=== PATIENT | female | born 1990 | race American Indian/Alaskan Native ===

== ENCOUNTER 2019-09-06 16:39 | Emergency (ER) | payer SELFPAY ==
[2019-09-06 17:11] VITALS: BP 132/91
[2019-09-06 17:16] LABS: Basophils % (Auto) 0.7 % (0.0-1.8); Eosinophils # (Auto) 0.1 K/mm3 (0.0-0.4); Eosinophils % (Auto) 1.8 % (0.0-4.3); Hematocrit 31.7 % (30.3-42.9); Hemoglobin 10.3 gm/dl (10.1-14.3); Lymphocytes # (Auto) 1.8 K/mm3 (1.2-5.4); Lymphocytes % (Auto) 29.1 % (13.4-35.0); Mean Corpuscular HGB Conc 32 % (30-34); Mean Corpuscular Volume 73 fl (79-97); Monocytes # (Auto) 0.5 K/mm3 (0.0-0.8); Monocytes % (Auto) 7.9 % (0.0-7.3); Platelet Count 387 K/mm3 (140-440); Red Blood Count 4.37 M/mm3 (3.65-5.03); Red Cell Distribution Width 19.2 % (13.2-15.2)
[2019-09-06 17:29] LABS: BUN/Creatinine Ratio 11; Blood Urea Nitrogen 10 mg/dL (7-17); Hemolysis Index 4
[2019-09-06 18:44] LABS: Benzodiazepines Screen,Urine PRESUMPTIVE NEGATIVE; Methadone Screen,Urine PRESUMPTIVE NEGATIVE; Opiate Screen,Urine PRESUMPTIVE NEGATIVE
[2019-09-06 18:48] LABS: Bilirubin,Urine NEG (Negative); Blood,Urine NEG (Negative); Color,Urine Yellow (Yellow); Hyaline Casts,Urine 3 /LPF; Mucus,Urine FEW /HPF; Protein,Urine <15 mg/dL mg/dL (Negative); Urobilinogen,Urine < 2.0 mg/dL (<2.0)
[2019-09-06 18:55] LABS: Amphetamine Screen,Urine PRESUMPTIVE POSITIVE; Cannabinoid Screen,Urine PRESUMPTIVE POSITIVE; Cocaine Screen,Urine PRESUMPTIVE POSITIVE
--- NOTE | 2019-09-06 18:59 | Emergency Department Report ---
ED Psych HPI - General Chief Complaint: Medical Clearance Stated Complaint: BED BUGS Source: patient Mode of arrival: Ambulatory - History of Present Illness Initial Comments: Patient presents to the emergency room complaining that there is bedbugs in her eyes and on her skin and she has bleach her entire body. Patient reports that she was staying at a hotel and forearm the claim clerk that she had bedbugs. Denies any suicidal homicidal ideation. Patient follows up here to the emergency room. Complaint: other (Bizarre behavior) Associated Psychiatric Symptoms: visual hallucinations History of same: No Quality: constant Improves With: none Worsens With: none Context: recent drug abuse Associated Symptoms: denies: confusion, headache, shortness of breath, nausea, vomiting Treatments Prior to Arrival: none - Related Data Allergies Allergy/AdvReac Type Severity Reaction Status Date / Time No Known Allergies Allergy Unverified 09/06/19 17:11 ED Review of Systems ROS: Stated complaint: BED BUGS Other details as noted in HPI ED Past Medical Hx - Social History Smoking Status: Never Smoker Substance Use Type: None ED Physical Exam - General Limitations: No Limitations ED Course Vital Signs 09/06/19 17:07 Temperature 98.1 F Pulse Rate 125 H Respiratory 18 Rate Blood Pressure 132/91 O2 Sat by Pulse 100 Oximetry ED Medical Decision Making - Lab Data Result diagrams: 09/06/19 16:54 09/06/19 16:54 - Medical Decision Making Patient presents to the emergency room complaining that there is bedbugs in her eyes and on her skin and she has bleach her entire body. Patient reports that she was staying at a hotel and forearm the claim clerk that she had bedbugs. Denies any suicidal homicidal ideation. Patient follows up here to the emergency room. Type and screen shows that patient is positive for amphetamines, cocaine, TSH. Offered patient a Benadryl to help with her itching and she declined and decided to leave. Critical care attestation.: If time is entered above; I have spent that time in minutes in the direct care of this critically ill patient, excluding procedure time. ED Disposition Clinical Impression: Amphetamine abuse, Cocaine abuse, Mild tetrahydrocannabinol (THC) abuse, Rash and nonspecific skin eruption Disposition: DC-01 TO HOME OR SELFCARE Is pt being admited?: No Does the pt Need Aspirin: No Condition: Stable Instructions: Methamphetamine Abuse (ED), Polysubstance Abuse (ED) Additional Instructions: Recommend to discontinue using drugs. Follow-up with a drug rehab center. You can take Benadryl for needed for itchiness and rash. Referrals: PRIMARY CARE, [Primary Care Provider] - 3-5 Days [facility] [Outside] - 3-5 Days
== END 2019-09-06 19:18 | disposition home or self-care (01) ==
LOC: ED 16:39
DX: F15.10 Other stimulant abuse, uncomplicated (principal); F14.10 Cocaine abuse, uncomplicated; F19.10 Other psychoactive substance abuse, uncomplicated; R21 Rash and other nonspecific skin eruption
CPT/HCPCS: 36415; 80048; 80307; 80320; 81001; 84703; 85025; G0480